=== PATIENT | male | born 1955 | race Caucasian/White ===

== ENCOUNTER 2017-08-15 09:27 | Inpatient (IN) | payer BC ==
[2017-08-15] VITALS (7 sets, daily range): BP systolic 108–143; BP diastolic 59–80
[~2017-08-15] VITALS: Ht 172.7 cm; Wt 108.3 kg
[2017-08-15] MEDS ORDERED: METFORMIN HCL500 MG PO (09:44)
[2017-08-15] MEDS ORDERED: GLIPIZIDE5 MG PO (09:44)
[2017-08-15] MEDS ORDERED: ROSUVASTATIN CAL5 MG PO (09:45)
[2017-08-15] MEDS ORDERED: LISINOPRIL10 MG PO (09:46)
[2017-08-15] MEDS ORDERED: VITAMIN D2000 UNI1 PO (09:47)
[2017-08-15 10:34] LABS: EOSINOPHIL (%) 0.6 % (0-5); EOSINOPHIL COUNT 0.1 K/uL (0-0.3); HEMATOCRIT 21.5 % (38.0-50.0); IMMATURE GRANULOCYTE COUNT 0.1 K/uL; INSTRUMENT ABS NEUTROPHIL CT 7.3 K/uL; LYMPHOCYTE COUNT 2.4 K/uL (1.0-2.8); MCHC 33.5 G/DL (30.0-36.0); MCV 86.7 FL (86-99); MEAN PLAT.VOLUME 10.2 uM^3 (9.0-12.4); MONOCYTE (%) 5.7 % (3-12); MONOCYTE COUNT 0.6 K/uL (0-0.8); NEUTROPHIL (%) 69.4 % (45-76); NEUTROPHIL COUNT 7.3 K/uL (1.8-6.4); NRBC (%) 0.3 /100 WBC (0-0); PLATELET COUNT 247 K/uL (156-360); RBC DIS.WIDTH-CV 13.4 % (11.8-14.6); RBC DIS.WIDTH-SD 40.9 % (39-53); RED BLOOD COUNT 2.48 M/uL (4.00-5.50); WHITE BLOOD COUNT 10.5 K/uL (4.1-10.2)
[2017-08-15 10:39] LABS: INTER. NORMALIZED RATIO 1.1; PROTHROMBIN TIME 12.6 SEC (10.2-12.9)
[2017-08-15 10:46] LABS: CHLORIDE 104 mEq/L (99-109); POTASSIUM 5.2 mEq/L (3.7-5.4); SODIUM 138 mEq/L (136-147)
[2017-08-15 10:48] LABS: GLUCOSE 326 mg/dL (70-99)
[2017-08-15 10:49] LABS: ANION GAP 11 MEQ/L (2-14)
[2017-08-15 10:52] LABS: GFR ESTIMATE (CALCULATED) > 59 mL/min/; UREA NITROGEN (BUN) 39 mg/dL (9-23)
[2017-08-15 12:41] LABS: ADD MIUA? YES; BILIRUBIN NEGATIVE; BLOOD NEGATIVE; COLOR YELLOW ((YELLOW)); GLUCOSE (STRIP) >=500; KETONES NEGATIVE; LEUKOCYTES NEGATIVE; NITRITE NEGATIVE; PROTEIN (STRIP) 100; SPECIFIC GRAVITY 1.016 (1.000-1.030); UROBILINOGEN 0.2 MG/DL (0.2-1.0)
[2017-08-15 12:52] LABS: BACTERIA RARE /HPF; EPITHELIAL CELLS RARE /HPF; MUCUS 2+ /LPF; RED BLOOD CELLS 0-5 /HPF (0-5); UCUL ADDED? NO; WHITE BLOOD CELLS 0-5 /HPF (0-5)
[2017-08-15 17:10] LABS: HEMATOCRIT 23.6 % (38.0-50.0); MCV 87.7 FL (86-99)
[2017-08-15 17:31] LABS: POINT-OF-CARE METER ID UU14174225
[2017-08-15 23:08] LABS: POINT-OF-CARE METER ID UU13113717
[2017-08-16] VITALS (7 sets, daily range): BP systolic 123–162; BP diastolic 63–89
[2017-08-16 06:09] LABS: POINT-OF-CARE METER ID UU14174225
[2017-08-16 06:13] LABS: HEMATOCRIT 28.5 % (38.0-50.0); MCH 29.3 PG (29.0-34.0); MCHC 33.3 G/DL (30.0-36.0); PLATELET COUNT 200 K/uL (156-360); RBC DIS.WIDTH-CV 14.3 % (11.8-14.6); RBC DIS.WIDTH-SD 43.8 % (39-53)
[2017-08-16 06:16] LABS: RED BLOOD COUNT 3.24 M/uL (4.00-5.50)
[2017-08-16 07:22] LABS: POINT-OF-CARE METER ID UU14174225
[2017-08-16 07:52] LABS: Estimated Average Glucose 160 mg/dL (70-123); HEMOGLOBIN A1c (GLYCOHEMOGLOB) 7.2 % HGB (Below 5.7)
[2017-08-16 11:11] LABS: POINT-OF-CARE METER ID UU14174225
[2017-08-16 15:11] LABS: POINT-OF-CARE METER ID UU14174225
[2017-08-16 18:37] LABS: POINT-OF-CARE METER ID UU14174225
[2017-08-16 21:14] LABS: POINT-OF-CARE METER ID UU13113717
[2017-08-17 07:23] LABS: HEMATOCRIT 27.7 % (38.0-50.0); MCHC 32.5 G/DL (30.0-36.0); MCV 89.4 FL (86-99); MEAN PLAT.VOLUME 10.1 uM^3 (9.0-12.4); PLATELET COUNT 193 K/uL (156-360); RBC DIS.WIDTH-CV 15.1 % (11.8-14.6); RBC DIS.WIDTH-SD 45.9 % (39-53); WHITE BLOOD COUNT 5.3 K/uL (4.1-10.2)
[2017-08-17 07:30] VITALS: BP 140/72
[2017-08-17 07:47] LABS: IRON 37 MCG/DL (35-150)
[2017-08-17 08:23] LABS: FERRITIN 90 NG/ML (22-322)
[2017-08-17 09:05] LABS: POINT-OF-CARE METER ID UU13113717
[2017-08-17 12:12] LABS: POINT-OF-CARE METER ID UU13113717
[2017-08-17] MEDS ORDERED: PANTOPRAZOLE SO40 MG PO (16:35)
[2017-08-17] MEDS ORDERED: IRON325 M1 PO (16:35)
[2017-08-17] MEDS ORDERED: COLACE100 MG PO (16:35)
== END 2017-08-17 17:33 | disposition home or self-care (01) | DRG 378 ==
LOC: EME 09:27 → 5SOUTH 12:17 → EDOF 12:17 → ENRESERV 12:19 → 5SOUTH 15:30
PROVIDERS: Emergency Medicine; Family Medicine; Specialist
PROC: 30233N1 Transfusion of Nonautologous Red Blood Cells into Peripheral Vein, Percutaneous Approach (ICD-10-PCS; principal; 2017-08-15)
PROC: 0DJ08ZZ Inspection of Upper Intestinal Tract, Via Natural or Artificial Opening Endoscopic (ICD-10-PCS; 2017-08-16)
DX: K92.1 Melena (principal); D62 Acute posthemorrhagic anemia; K29.70 Gastritis, unspecified, without bleeding; K29.80 Duodenitis without bleeding; K25.7 Chronic gastric ulcer without hemorrhage or perforation; I95.9 Hypotension, unspecified; E78.5 Hyperlipidemia, unspecified; E11.9 Type 2 diabetes mellitus without complications; I10 Essential (primary) hypertension; E66.9 Obesity, unspecified; Z68.36 Body mass index [BMI] 36.0-36.9, adult
CPT/HCPCS: 80048; 81003; 82272; 82607; 82728; 82746; 82948; 83036; 83540; 84466; 85014; 85018; 85025; 85027; 85610; 85730; 86850; 86900; 86901; 86920; 99281; 99285; C9113; J1815; J1940; J7030; P9016